=== PATIENT | female | born 2005 | race Caucasian/White ===

== ENCOUNTER 2023-05-17 18:08 | Emergency (ER) | payer BC, SELFPAY ==
[2023-05-17 18:09] VITALS: BP 130/83; PULSE 113; PULSE 114; RESP 16; TEMP 36.2; O2SAT 100; BMI 22.8
[2023-05-17 18:11] VITALS: BP 130/83; PULSE 112; RESP 16; TEMP 36.2; O2SAT 100
--- NOTE | 2023-05-17 19:29 | EX.ED.DYSGE1 ---
HPI <DAMION Guillory - Last Filed: 05/17/23 20:49> History of Present Illness Chief Complaint: Sore Throat Narrative Narrative: Patient is a 17-year-old female with no significant medical history presents to the emergency department for pain to the left side of her throat. Patient states for the last 2 days she has been sleeping greater than 12 hours a day, having intermittent fever and chills, [facility], and the patient does have a significant swelling to the left side of her throat with some discoloration and they referred her to the emergency department. Patient states she has pain with swallowing, patient denies any nausea or vomiting. PFSH <DAMION Guillory - Last Filed: 05/17/23 20:49> [facility] Medical History no medical history Home Medications amoxicillin 875 mg-potassium clavulanate 125 mg tablet 1 tab PO BID #20 tabs 05/17/23 [Rx Last Taken Unknown] cetirizine 10 mg tablet (24Hour Allergy) 10 mg PO DAILY 05/17/23 [History Last Taken Unknown] Allergy/AdvReac Type Severity Reaction Status Date / Time No Known Allergies Allergy Verified 05/17/23 18:11 Social History Smoking Status: Never smoker ROS <DAMION Guillory - Last Filed: 05/17/23 20:49> ROS ED ROS Narrative Constitutional: Negative for fever, chills, weight loss, weakness Eyes: Negative for vision loss, vision change, double vision ENT: Negative for any ear pain, congestion. Positive for sore throat Cardiovascular: Negative for any chest pain, tightness, palpitations Respiratory: Negative for any cough, sputum production, hemoptysis, dyspnea, dyspnea on exertion, orthopnea Gastrointestinal: Negative for any abdominal pain, nausea, vomiting, diarrhea, constipation, blood in stool, blood in vomit : Negative for any urinary frequency, dysuria, retention, blood in urine Muscle skeletal: Negative for any neck pain, back pain Neurological: Negative for any headache, syncope, dizziness Skin: Negative for any rashes, itching, abrasions, lacerations Psychiatric: Negative for any depression, anxiety, stress, suicidal ideation, homicidal ideation Hematologic: Negative for any excessive bruising, easy bleeding EXAM <DAMION Guillory - Last Filed: 05/17/23 20:49> Physical Exam Narrative Exam Narrative: Vital signs reviewed. Patient was febrile here. HEET: Head normocephalic atraumatic, TMs clear bilaterally. Posterior pharynx is clear, moist mucous membranes. Nares clear bilaterally. Patient has discoloration, erythema the left tonsil. This is concerning for a tonsillar abscess. Patient has no hot potato voice. Patient is able to manage her secretions. Patient speaking complete sentences. Neck: Supple with no lymphadenopathy or tenderness. No signs of meningismus. Cardiac: Regular rate and rhythm no murmurs gallops or rubs, equal peripheral pulses bilaterally. Respiratory: Lungs clear to auscultation bilaterally. No chest tenderness. Abdomen: Soft, nontender, nondistended. No abdominal bruit or pulsatile masses. No hepatosplenomegaly Extremities: No peripheral edema, no signs of gross trauma or deformity. Active full range of motion of all extremities. Neuro: Cranial nerves II through XII intact, no focal neurological deficits. Skin: Clean dry and intact with no rash, purpura, petechiae, vesicles or pustules. Backs/flank: No CVA tenderness, no midline spinal tenderness, no deformity. Psych: Normal mood and affect. No SI, HI or acute psychosis. Const Vital Signs: 05/17/23 18:09 05/17/23 18:09 05/17/23 18:11 Temperature 97.1 F L 97.1 F L 97.1 F L Temperature Source Temporal Temporal Temporal Pulse Rate 113 H 114 H 112 H Respiratory Rate 16 16 16 Blood Pressure 130/83 H 130/83 H 130/83 H Blood Pressure Mean 98 98 98 Pulse Ox 100 100 100 Oxygen Delivery Method Room Air Room Air Room Air 05/17/23 20:47 Temperature 99.4 F H Temperature Source Oral Pulse Rate Respiratory Rate Blood Pressure Blood Pressure Mean Pulse Ox Oxygen Delivery Method <Dr. Kike Verdugo MD - Last Filed: 05/17/23 21:29> Physical Exam Const Vital Signs: 05/17/23 18:09 05/17/23 18:09 05/17/23 18:11 Temperature 97.1 F L 97.1 F L 97.1 F L Temperature Source Temporal Temporal Temporal Pulse Rate 113 H 114 H 112 H Respiratory Rate 16 16 16 Blood Pressure 130/83 H 130/83 H 130/83 H Blood Pressure Mean 98 98 98 Pulse Ox 100 100 100 Oxygen Delivery Method Room Air Room Air Room Air 05/17/23 20:47 Temperature 99.4 F H Temperature Source Oral Pulse Rate Respiratory Rate Blood Pressure Blood Pressure Mean Pulse Ox Oxygen Delivery Method [facility] <DAMION Guillory - Last Filed: 05/17/23 20:49> [facility] Lab Data Labs: Laboratory Results - last 24 hr 05/17/23 19:38 WBC 12.2 H RBC 4.63 Hgb 13.3 Hct 40.8 MCV 88.1 MCH 28.7 MCHC 32.6 RDW Std Deviation 42.9 RDW Coeff of Mike 13.2 Plt Count 179 MPV 9.7 Immature Gran % (Auto) 0.300 Neut % (Auto) 82.5 H Lymph % (Auto) 5.3 L [place] % (Auto) 11.2 H Eos % (Auto) 0.3 Baso % (Auto) 0.4 Absolute Neuts (auto) 10.1 H Absolute Lymphs (auto) 0.65 L Nucleated RBC % 0 Treatment and Re-Evaluation :: Differential diagnosis includes however is not limited to: Strep throat, viral syndrome, viral pharyngitis, tonsillar abscess, Patient presents the emergency department with mild discomfort secondary to pain to the left tonsil. Patient will receive a CBC, IV Unasyn, IV dexamethasone IV Toradol as well as oral Tylenol. Patient be reevaluated. The ER attending did try to aspirate it only had minimal discharge. On reevaluation, the patient was improved. Patient CBC showed leukocytosis white blood count 12.2, there are no atypical lymphocytes. Patient was given IV fluids, IV Unasyn, Toradol Tylenol as well as dexamethasone. I spoke with the patient at length, the patient will be placed on Augmentin for home. She will use salt water gargles. She will follow-up outpatient. I did give the patient ENT follow-up, patient will return here for worsening swelling, difficulty breathing, difficulty swallowing, worsening fever or chills. She is happy with the plan of care, all questions answered, she was instructed to take the entire course of antibiotics. Patient stable for discharge. <Dr. Kike Verdugo MD - Last Filed: 05/17/23 21:29> [facility] Narrative Medical decision making narrative: I have personally performed a face to face assessment of the patient and have reviewed the LISBETH Note. I performed a substantive portion of the visit including all aspects of the following. My oconnell findings include: History is remarkable for sore throat that started yesterday. She complains of fever. She has change in voice. She complains of pain with swallowing liquids or solids. She has had no drooling. There is no history medic fever, heart murmur or mitral valve prolapse. She denies fatigue. She denies rash. Exam is remarkable for enlarged tonsil with significant exudate. The left tonsil is markedly larger. Uvula is midline. There is question of fluctuance to suggest a peritonsillar abscess. At the [facility] patient has peritonsillar cellulitis left greater than right. There is slight dysphonia. There is no drooling. There is no trismus. Patient has cervical lymphadenopathy. Trachea is midline. There is no stridor. Heart is rapid and regular. There is no murmur, gallop or rub. Lungs are clear to auscultation. There is no dermatologic rash noted to suggest scarlet fever. Medical Decision Making patient has a peritonsillar abscess. Needle aspirate was undertaken by me. Point 2/10 of a cc of purulent material was aspirated. Plan is CBC to assess for atypical lymphocytes. Decadron for the swollen tonsils and Unasyn IV piggyback. Other additions or changes: [None] Lab Data Labs: Laboratory Results - last 24 hr 05/17/23 19:38 WBC 12.2 H RBC 4.63 Hgb 13.3 Hct 40.8 MCV 88.1 MCH 28.7 MCHC 32.6 RDW Std Deviation 42.9 RDW Coeff of Mike 13.2 Plt Count 179 MPV 9.7 Immature Gran % (Auto) 0.300 Neut % (Auto) 82.5 H Lymph % (Auto) 5.3 L [place] % (Auto) 11.2 H Eos % (Auto) 0.3 Baso % (Auto) 0.4 Absolute Neuts (auto) 10.1 H Absolute Lymphs (auto) 0.65 L Nucleated RBC % 0 Procedures <Dr. Kike Verdugo MD - Last Filed: 05/17/23 21:29> Other Procedures Procedure(s): Needle aspirate left peritonsillar abscess, minimal fluid withdrawn Discharge Plan Triage Chief Complaint: Sore Throat ED Midlevel Provider: Bon [place] ED Provider: Kike Verdugo Dx/Rx/DC Orders Clinical Impression: Abscess of tonsil, Fever in adult, Sinus tachycardia Instructions: ED Fever Control (Adult), ED Peritonsillar Abscess, ED Tonsillitis (Strep Throat) Prescriptions: New amoxicillin-pot clavulanate 875-125 mg tablet 1 tab PO BID Qty: 20 0RF No Action cetirizine [24Hour Allergy] 10 mg tablet 10 mg PO DAILY Primary Care Provider: Care Physician,No Primary Referrals: Shaheen Quinones MD [Med Staff - Courtesy Staff] - Care Physician,No Primary [Primary Care Provider] - Activity Restrictions/Additional Instructions: Use salt water gargles. Take the antibiotics till finished. You need to follow-up with ENT, that is who I referred you to. Please return for any worsening symptoms. Disposition Disposition: Home, Self Care
[2023-05-17 19:44] LABS: Absolute Lymphocyte Count 0.65 X10^3/uL (0.83-4.51); Absolute Neutrophil Count 10.1 X10^3/uL (2.0-7.7); Basophil# 0.05 X10^3/uL; Basophil% 0.4 % (0-1); Eosinophil# 0.04 X10^3/uL; Eosinophils% 0.3 % (0-5); Hematocrit 40.8 % (37-47); Hemoglobin 13.3 g/dL (12.0-15.0); Lymphocyte # 0.65 X10^3/ul (0.83-4.51); Lymphocyte % 5.3 % (19-41); Mean Corp Hgb Conc 32.6 g/dL (32-36); Mean Corpuscular Hgb 28.7 pg (27.0-32.0); Mean Corpuscular Volume 88.1 fL (81-99); Mean Platelet Vol. 9.7 fl (6.2-12.0); Monocyte# 1.37 X10^3/uL; Monocyte% 11.2 % (0-10); NRBC Flagged by Analyzer 0 % (0-5); Neutrophil # 10.05 X10^3/uL (2.7-7.7); Neutrophil % 82.5 % (47-70); Platelet Count 179 K/mm3 (150-450); RBC Distribution Width CV 13.2 % (11.6-14.6); RBC Distribution Width SD 42.9 fl (35.1-43.9); Red Blood Count 4.63 M/mm3 (4.2-5.4); White Blood Count 12.2 K/mm3 (4.4-11.0)
[2023-05-17] MEDS: 0.9% Normal Saline (1000mL) 1,000 ML 1000 ML IV (19:48)
[2023-05-17] MEDS: Acetaminophen 500 MG Tablet 1000 MG PO (19:48)
[2023-05-17] MEDS: Ketorolac 15 MG/ML Vial IV (19:49)
[2023-05-17] MEDS: dexAMETHasone 10 MG/ML Vial PO.IVFORM (19:50)
[2023-05-17] MEDS: Ampicillin/Sulbactam 3 GM in 0.9% Normal Saline (100mL MB+) 100 ML IV (19:51)
[2023-05-17 20:47] VITALS: TEMP 37.4
[2023-05-17 22:11] VITALS: BP 103/45; PULSE 90; RESP 18; TEMP 36.8; O2SAT 99
== END 2023-05-17 22:13 | disposition home or self-care (01) ==
PROVIDERS: Nurse Practitioner; Emergency Provider Emergency Medicine; Visit Provider Emergency Medicine
DX: J36 Peritonsillar abscess (principal); R00.0 Tachycardia, unspecified
CPT/HCPCS: 10160; 10060; 85025; 96361; 96365; 96375; 99282; J7030; A4216; J0295